=== PATIENT | male | born 1940 | race Caucasian/White ===

== ENCOUNTER 2022-01-18 12:46 | Inpatient (IN) | payer MEDICARE ==
[~2022-01-18] VITALS: Ht 172.7 cm; Wt 59.0 kg
[2022-01-18] MEDS ORDERED: MEDI-FIRST ASP325 MG PO (16:45)
[2022-01-18] MEDS ORDERED: TYLENOL EXTRA500 M2 PO (16:50)
[2022-01-18] MEDS ORDERED: VOLTAREN ARTHRI20 GM T (16:52)
[2022-01-18] MEDS ORDERED: DEPAKOTE SPRIN125 MG PO (16:55)
[2022-01-18] MEDS ORDERED: RISPERDAL0.5 MG PO (16:56)
[2022-01-18] MEDS ORDERED: DULCOLAX5 M1 PO (16:57)
[2022-01-18] MEDS ORDERED: MELATONIN3 MG PO (16:58)
[2022-01-18] MEDS ORDERED: ELIQUIS5 M1 PO (17:00)
[2022-01-18] MEDS ORDERED: LOPRESSOR25 MG PO (17:01)
[2022-01-19 04:18] VITALS: BP 121/73
[2022-01-19 06:28] LABS: BASO % 0.3 % (0.0-1.0); EOS # 0.1 10*3/uL (0.0-0.4); EOS % 1.7 % (1.0-4.0); HEMATOCRIT 39.2 % (42.0-52.0); LYMPH # 0.8 10*3/uL (1.3-4.4); MEAN CELL VOLUME 89.3 fl (80.0-94.0); MEAN CORPUSCULAR HGB 29.2 pg (27.0-31.0); MEAN CORPUSCULAR HGB CONC 32.7 g/dl (33.0-37.0); MEAN PLATELET VOLUME 9.8 fl (9.6-12.3); MONO # 0.4 10*3/uL (0.1-1.0); MONO % 6.7 % (3.0-9.0); NEUT # 4.7 10*3/uL (2.3-7.9); NEUT % 78.1 % (47.0-73.0); PLATELET COUNT AUTOMATED 119 10*3/uL (130-400); RED BLOOD COUNT 4.39 10*6/uL (4.50-5.90); RED CELL DISTRI WIDTH 12.5 % (0-14.5)
[2022-01-19 06:43] LABS: BUN 34 mg/dl (7-24); CHLORIDE 108 mmol/L (98-107); CHOLESTEROL 135 mg/dL (<200); CREATININE 1.14 mg/dL (0.70-1.30); LDL CHOLESTEROL 71 mg/dL (9-159); POTASSIUM 3.8 mmol/L (3.5-5.1); SGOT/AST 53 IU/L (3-35); SGPT/ALT 66 U/L (12-78); SODIUM 144 mmol/L (136-145); TOTAL PROTEIN 5.8 gm/dL (6.4-8.2); TRIGLYCERIDES 81 mg/dl (<150)
[2022-01-19 06:44] LABS: ALKALINE PHOSPHATASE 86 U/L (45-117)
[2022-01-19 08:00] VITALS: BP 128/71
[2022-01-19 08:00] LABS: VITAMIN D, 25-HYDROXY 24.4 ng/mL (30-100)
[2022-01-19 08:15] VITALS: BP 130/75
[2022-01-19 16:00] VITALS: BP 130/75
[2022-01-19 20:00] VITALS: BP 119/61
[2022-01-20 07:21] VITALS: BP 153/80
[2022-01-20 19:36] VITALS: BP 83/63
[2022-01-20 20:08] VITALS: BP 98/62
[2022-01-21 07:01] VITALS: BP 98/62
[2022-01-21 19:39] VITALS: BP 121/70
[2022-01-22 08:00] VITALS: BP 117/76
[2022-01-22 19:57] VITALS: BP 122/63
[2022-01-23 07:27] VITALS: BP 119/68
[2022-01-23 19:06] VITALS: BP 117/61
[2022-01-24 08:00] VITALS: BP 117/65
[2022-01-24 20:00] VITALS: BP 106/65
[2022-01-25 08:00] VITALS: BP 80/48
[2022-01-25 10:51] VITALS: BP 102/54
[2022-01-25 19:14] VITALS: BP 114/61
[2022-01-26 06:32] LABS: BUN 24 mg/dl (7-24); CHLORIDE 112 mmol/L (98-107); CREATININE 1.06 mg/dL (0.70-1.30); POTASSIUM 3.7 mmol/L (3.5-5.1); SODIUM 143 mmol/L (136-145)
[2022-01-26 08:00] VITALS: BP 120/68
[2022-01-26 20:00] VITALS: BP 103/57
[2022-01-27 07:11] VITALS: BP 132/76
[2022-01-27 20:00] VITALS: BP 101/71
[2022-01-28 07:26] VITALS: BP 129/84
[2022-01-28 20:00] VITALS: BP 107/58
[2022-01-29 08:00] VITALS: BP 102/73
[2022-01-29 20:00] VITALS: BP 108/62
[2022-01-30 07:07] VITALS: BP 124/82
[2022-01-30 20:00] VITALS: BP 119/70
[2022-01-31 07:40] VITALS: BP 133/67
[2022-01-31] MEDS ORDERED: VITAMIN D3125 MC1 PO (13:24)
[2022-01-31 20:00] VITALS: BP 105/80
[2022-02-01 07:17] VITALS: BP 145/72; BP 148/90
[2022-02-01] MEDS ORDERED: RIVASTIGMINE1 EAC2 T (09:22)
[2022-02-01] MEDS ORDERED: QUETIAPINE FUM100 M3 PO (09:22)
[2022-02-01] MEDS ORDERED: MEMANTINE HCL10 MG PO (09:22)
== END 2022-02-01 12:11 | DRG 57 ==
LOC: 3N 12:46
PROVIDERS: Family Medicine; ADMIT Psychiatry & Neurology Psychiatry; ATTEND Psychiatry & Neurology Psychiatry
DX: G30.9 Alzheimer's disease, unspecified (principal); F02.80 Dementia in other diseases classified elsewhere, unspecified severity, without behavioral disturbance, psychotic disturbance, mood disturbance, and anxiety; E11.65 Type 2 diabetes mellitus with hyperglycemia; F23 Brief psychotic disorder; E44.0 Moderate protein-calorie malnutrition; Z68.1 Body mass index [BMI] 19.9 or less, adult; F22 Delusional disorders; I48.91 Unspecified atrial fibrillation; R41.3 Other amnesia; D64.9 Anemia, unspecified; E55.9 Vitamin D deficiency, unspecified; R74.01 Elevation of levels of liver transaminase levels; I95.1 Orthostatic hypotension; D69.6 Thrombocytopenia, unspecified; Z85.46 Personal history of malignant neoplasm of prostate; Z86.59 Personal history of other mental and behavioral disorders